=== PATIENT | male | born 2000 | race Caucasian/White ===

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

== ENCOUNTER 2021-07-10 12:52 | Emergency (ER) | payer BC, OTHER ==
[2021-07-10 13:06] VITALS: TEMP 98.2
[2021-07-10] MEDS ORDERED: SODIUM CHLORIDE 0.9% 1,000 ML IV STA (13:34)
--- NOTE | 2021-07-10 13:40 | ED ---
General Adult HPI - General Chief complaint: Recheck/Abnormal Lab/Rx Stated complaint: not feeling right, seizure tuesday Time Seen by Provider: 07/10/21 13:23 Source: patient, RN notes reviewed Mode of arrival: ambulatory Limitations: no limitations - History of Present Illness Initial comments: Patient is a pleasant 21-year-old male presenting to the emergency department not feeling well. Patient did have an episode 36 hours ago while eating dinner where he became unresponsive. This episode lasted around a minute. Patient did have some abnormal movements during this. It is questionable whether or not this may have been seizure activity. Patient was slightly confused afterwards and has been drowsy since that time. Patient was especially drowsy that night. Patient has had some light sensitivity. No significant headaches or weakness. Patient does have a history of passing out once previously however no history of seizure. - Related Data Home Medications Medication Instructions Recorded Confirmed LORazepam [Ativan] 1 mg PO TID PRN 07/10/21 07/10/21 Mirtazapine [Remeron] 30 mg PO HS 07/10/21 07/10/21 Allergies Allergy/AdvReac Type Severity Reaction Status Date / Time No Known Allergies Allergy Verified 07/10/21 13:47 Review of Systems ROS Statement: Those systems with pertinent positive or pertinent negative responses have been documented in the HPI. ROS Other: All systems not noted in ROS Statement are negative. Constitutional: Denies: fever Eyes: Denies: eye pain ENT: Denies: ear pain Respiratory: Denies: cough Cardiovascular: Denies: chest pain Endocrine: Reports: fatigue Gastrointestinal: Reports: nausea. Denies: abdominal pain, vomiting Musculoskeletal: Denies: back pain Skin: Denies: rash Neurological: Denies: weakness, confusion Past Medical History Past Medical History: Asthma History of Any Multi-Drug Resistant Organisms: None Reported Past Surgical History: No Surgical Hx Reported Past Psychological History: Anxiety, Depression Smoking Status: Current every day smoker Past Alcohol Use History: None Reported, Rare Past Drug Use History: Marijuana General Exam Limitations: no limitations General appearance: alert, in no apparent distress Head exam: Present: normocephalic Eye exam: Present: normal appearance, PERRL, EOMI. Absent: nystagmus ENT exam: Present: normal oropharynx Neck exam: Present: normal inspection Respiratory exam: Present: normal lung sounds bilaterally Cardiovascular Exam: Present: regular rate, normal rhythm GI/Abdominal exam: Present: soft. Absent: tenderness Extremities exam: Present: normal inspection Neurological exam: Present: alert, oriented X3, CN II-XII intact. Absent: motor sensory deficit Expanded Neurological exam: Present: protecting the airway Speech: Present: fluid speech Cranial nerves: EOM's Intact: Normal Sensory exam: Upper Extremity Light Touch: Normal, Lower Extremity Light Touch: Normal Motor strength exam: RUE: 5, LUE: 5, RLE: 5, LLE: 5 Eye Response: (4) open spontaneously Motor Response: (6) obeys commands Verbal Response: (5) oriented Psychiatric exam: Present: normal affect, normal mood Skin exam: Present: normal color Course Vital Signs 07/10/21 13:01 Temperature 98.2 F Pulse Rate 64 Respiratory 18 Rate Blood Pressure 135/81 O2 Sat by Pulse 98 Oximetry EKG Findings - EKG Comments: EKG Findings:: Normal sinus rhythm with her is 72. AR 200. QRS 114. QT 390. QTC 427. Normal axis. Normal QRS. No acute ST change. Medical Decision Making - Medical Decision Making Patient reevaluated and resting comfortably in bed. Patient updated on results and need for follow-up. - Lab Data Result diagrams: 07/10/21 13:52 07/10/21 13:52 Lab Results 07/10/21 07/10/21 Range/Units 13:52 13:52 WBC 6.5 (4.0-11.0) k/uL RBC 5.32 (4.30-5.90) m/uL Hgb 16.4 (13.0-17.5) gm/dL Hct 47.5 (39.0-53.0) % MCV 89.4 (80.0-100.0) fL MCH 30.9 (25.0-35.0) pg MCHC 34.5 (31.0-37.0) g/dL RDW 12.2 (11.5-15.5) % Plt Count 216 (150-450) k/uL MPV 7.6 Neutrophils % 72 % Lymphocytes % 23 % Monocytes % 4 % Eosinophils % 1 % Basophils % 0 % Neutrophils # 4.7 (1.3-7.7) k/uL Lymphocytes # 1.5 (1.0-4.8) k/uL Monocytes # 0.2 (0-1.0) k/uL Eosinophils # 0.0 (0-0.7) k/uL Basophils # 0.0 (0-0.2) k/uL Sodium 139 (137-145) mmol/L Potassium 4.1 (3.5-5.1) mmol/L Chloride 105 (98-107) mmol/L Carbon Dioxide 26 (22-30) mmol/L Anion Gap 8 mmol/L BUN 12 (9-20) mg/dL Creatinine 0.89 (0.66-1.25) mg/dL Est GFR (CKD-EPI)AfAm >90 (>60 ml/min/1.73 sqM) Est GFR (CKD-EPI)NonAf >90 (>60 ml/min/1.73 sqM) Glucose 98 (74-99) mg/dL Calcium 9.7 (8.4-10.2) mg/dL Magnesium 1.9 (1.6-2.3) mg/dL Total Bilirubin 1.3 (0.2-1.3) mg/dL AST 25 (17-59) U/L ALT 18 (4-49) U/L Alkaline Phosphatase 50 (38-126) U/L Total Protein 7.2 (6.3-8.2) g/dL Albumin 4.3 (3.5-5.0) g/dL - Radiology Data Radiology results: report reviewed (Computed tomography scan of the brain shows no acute process) Disposition Clinical Impression: Unresponsive episode Disposition: HOME SELF-CARE Condition: Stable Instructions (If sedation given, give patient instructions): New-Onset Seizure in Adults (ED), Syncope (ED) Additional Instructions: Avoid driving or other activities potential to cause harm. Please follow-up with primary care physician in the next day or 2 for recheck. Return for seizure activity, passing out, unresponsiveness, confusion or weakness, worsening or changing symptoms or other concerns. Is patient prescribed a controlled substance at d/c from ED?: No Referrals: Shayne Solorio MD [Primary Care Provider] - 1-2 days Time of Disposition: 15:05
[2021-07-10 14:27] LABS: ALT 18 U/L (4-49); AST 25 U/L (17-59); African American GFR (CKD) >90 (>60 ml/min/1.73 sqM); Albumin 4.3 g/dL (3.5-5.0); Alkaline Phosphatase 50 U/L (38-126); Anion Gap 8 mmol/L; Blood Urea Nitrogen 12 mg/dL (9-20); Calcium 9.7 mg/dL (8.4-10.2); Carbon Dioxide 26 mmol/L (22-30); Chloride 105 mmol/L (98-107); Glucose 98 mg/dL (74-99); Magnesium 1.9 mg/dL (1.6-2.3); Non-African American GFR(CKD) >90 (>60 ml/min/1.73 sqM); Potassium 4.1 mmol/L (3.5-5.1); Sodium 139 mmol/L (137-145); Total Bilirubin 1.3 mg/dL (0.2-1.3); Total Protein 7.2 g/dL (6.3-8.2)
[2021-07-10 14:38] LABS: Basophils % (A) 0 %; Eosinophils % (A) 1 %; HCT 47.5 % (39.0-53.0); HGB 16.4 gm/dL (13.0-17.5); Lymphocytes # (A) 1.5 k/uL (1.0-4.8); Lymphocytes % (A) 23 %; MCH 30.9 pg (25.0-35.0); MCHC 34.5 g/dL (31.0-37.0); MCV 89.4 fL (80.0-100.0); Mean Platelet Volume 7.6; Monocytes # (A) 0.2 k/uL (0-1.0); Monocytes % (A) 4 %; Neutrophils # (A) 4.7 k/uL (1.3-7.7); Neutrophils % (A) 72 %; Platelet Count 216 k/uL (150-450); RBC 5.32 m/uL (4.30-5.90); RDW 12.2 % (11.5-15.5); WBC 6.5 k/uL (4.0-11.0)
--- NOTE | 2021-07-10 14:50 | CT ---
EXAMINATION TYPE: CT brain wo con DATE OF EXAM: 07/10/2021 COMPARISON: None. HISTORY: Seizure 2 days ago fatigue since. CT DLP: 1192.4 mGycm. Automated Exposure Control for Dose Reduction was Utilized. TECHNIQUE: CT scan of the head is performed without contrast. FINDINGS: There is no acute intracranial hemorrhage, mass effect, or midline shift identified. The ventricles and sulci are within normal limits in size. Burks-white matter differentiation is maintain ed. The globes are intact and the visualized sinuses are clear. The calvarium is intact. IMPRESSION: Unremarkable study.
[2021-07-10 15:35] VITALS: BP 120/66; PULSE 67; RESP 16
== END 2021-07-10 15:34 | disposition home or self-care (01) ==
LOC: EC 12:52
DX: R40.4 Transient alteration of awareness (principal); J45.909 Unspecified asthma, uncomplicated; F17.200 Nicotine dependence, unspecified, uncomplicated; R40.0 Somnolence
CPT/HCPCS: 36415; 70450; 80053; 83735; 85025; 93005; 96360; 99285

== ENCOUNTER 2025-01-22 22:38 | Inpatient (IN) | payer BC, MEDICAID, OTHER ==
--- NOTE | 2025-01-22 23:11 | ED ---
General Adult HPI <RadhapenelopeSurjit - Last Filed: 01/23/25 01:57> - General Source: patient, police, RN notes reviewed, old records reviewed Mode of arrival: ambulatory Limitations: no limitations <Celso Jaramillo - Last Filed: 01/28/25 14:18> - General Chief complaint: Psychiatric Symptoms Stated complaint: Petition Time Seen by Provider: 01/22/25 22:45 - History of Present Illness Initial comments: Patient is a 25-year-old male who presents emergency department after being petitioned by police for suicidal ideations. States he has a history of depression and he has daily suicidal ideations. No recent at times. Was stating he was going to shoot himself with his gun and was found by police to have a toy water gun with him. Was brought in by police for petition. Police were contacted by patient's mother. Patient does endorse daily suicidal ideations but states he has not acted on them. States he has between medications right now for his depression. Denies any homicidal ideations, intents, plans. Denies any hallucinations. States he uses marijuana but no other drugs or alcohol. Presents for further evaluation at this time. (Celso Jaramillo) - Related Data Previous Rx's Medication Instructions Recorded Viibryd 20 mg PO HS 01/25/25 hydrOXYzine pamoate [Vistaril] 25 mg PO TID PRN 30 Days #30 cap 01/25/25 lamoTRIgine [LaMICtal] 200 mg PO HS 30 Days #60 tab 01/25/25 Allergies Allergy/AdvReac Type Severity Reaction Status Date / Time No Known Allergies Allergy Verified 01/24/25 15:58 Review of Systems ROS Other: All systems not noted in ROS Statement are negative. <Surjit Burger - Last Filed: 01/23/25 01:57> ROS Other: All systems not noted in ROS Statement are negative. <Celso Jaramillo - Last Filed: 01/28/25 14:18> ROS Statement: Those systems with pertinent positive or pertinent negative responses have been documented in the HPI. Review of Systems: CONST: Denies fever EYES: Denies blurry vision ENT: Denies nasal congestion C/V: Denies Chest pain RESP: Denies shortness of breath GI: Denies abdominal pain : Denies dysuria SKIN: Denies rash. MSK: Denies joint pain. NEURO: Denies headache (Celso Jaramillo) Past Medical History Past Medical History: Asthma Additional Past Medical History / Comment(s): [employer] History of Any Multi-Drug Resistant Organisms: None Reported Past Surgical History: No Surgical Hx Reported Past Psychological History: Anxiety, Depression Smoking Status: Current every day smoker Past Alcohol Use History: Rare Past Drug Use History: Marijuana - Past Family History Mother History Unknown: Yes <Celso Jaramillo - Last Filed: 01/28/25 14:18> General Exam Limitations: no limitations <Celso Jaramillo - Last Filed: 01/28/25 14:18> - General Exam Comments Initial Comments: General: Appears in no acute distress. HEAD: Normal with no signs of head trauma. EYES: EOMI. ENT: Hearing grossly intact. RESPIRATORY: No respiratory distress. C/V: Regular rate and rhythm. ABD: Abdomen is nondistended. EXT: No obvious deformity. SKIN: No rashes or lesions observed on exposed skin. NEURO: Alert and oriented. (Celso Jaramillo) Course Vital Signs 01/22/25 01/23/25 22:38 02:13 Temperature 98.3 F 98.5 F Pulse Rate 107 H 71 Respiratory 18 17 Rate Blood Pressure 139/94 162/83 O2 Sat by Pulse 98 99 Oximetry Medical Decision Making <Surjit Burger - Last Filed: 01/23/25 01:57> - Lab Data Result diagrams: 01/24/25 07:00 01/24/25 07:00 <Celso Jaramillo - Last Filed: 01/28/25 14:18> - Medical Decision Making I saw the patient, conducted interview and filed the clinical certification. (Surjit Burger) Was pt. sent in by a medical professional or institution (, PA, MAKING MACHINE CATCHER, urgent care, hospital, or usp...) When possible be specific @ -No Did you speak to anyone other than the patient for history (EMS, parent, family, police, friend...)? What history was obtained from this source @ -Spoke with police who provided details of the petition Did you review nursing and triage notes (agree or disagree)? Why? @ -I reviewed and agree with nursing and triage notes Were old charts reviewed (outside hosp., previous admission, EMS record, old EKG, old radiological studies, urgent care reports/EKG's, usp records)? Report findings @ -Reviewed petition completed by police. Differential Diagnosis (chest pain, altered mental status, abdominal pain women, abdominal pain men, vaginal bleeding, weakness, fever, dyspnea, syncope, headache, dizziness, GI bleed, back pain, seizure, CVA, palpatations, mental health, musculoskeletal)? @ -Differential Mental Health Depression, anxiety, bipolar, psychosis, schizophrenia, borderline personality, situational depression, adjustment disorder, behavioral disorder, brain tumor, malingering, substance abuse, encephalopathy, medication reaction, dementia, hypothyroidism, degenerative neurologic disorder, lupus.... This is not meant to be all-inclusive list EKG interpreted by me (3pts min.). @ -None done X-rays interpreted by me (1pt min.). @ -None done CT interpreted by me (1pt min.). @ -None done U/S interpreted by me (1pt. min.). @ -None done What testing was considered but not performed or refused? (CT, X-rays, U/S, labs)? Why? @ -None What meds were considered but not given or refused? Why? @ -None Did you discuss the management of the patient with other professionals (professionals i.e. , PA, MAKING MACHINE CATCHER, lab, RT, psych nurse, social scientist, television agent, teacher, foreign service officer, lead case manager)? Give summary @ -No Was smoking cessation discussed for >3mins.? @ -No Was critical care preformed (if so, how long)? @ -No Were there social determinants of health that impacted care today? How? (Homelessness, low income, unemployed, alcoholism, drug addiction, transportation, low edu. Level, literacy, decrease access to med. care, [place] [facility], rehab)? @ -No Was there de-escalation of care discussed even if they declined (Discuss DNR or withdrawal of care, Hospice)? DNR status @ -No What co-morbidities impacted this encounter? (DM, HTN, Smoking, COPD, CAD, Cancer, CVA, ARF, Chemo, Hep., AIDS, mental health diagnosis, sleep apnea, morbid obesity)? @ -None Was patient admitted / discharged? Hospital course, mention meds given and route, prescriptions, significant lab abnormalities, going to OR and other per tinent info. @ -Patient presents with depression, suicidal ideation. Was petitioned by police. Sitter ordered. Suicide precautions ordered. UDS is pending. BAT is 0. At this time, patient is medically cleared for evaluation by psychiatry. Disposition pending psychiatric evaluation. EPS notified of the consult. EPS evaluated patient and determined that he does meet inpatient criteria for psychiatric admission. Patient admitted to inpatient psychiatry. Undiagnosed new problem with uncertain prognosis? @ -No Drug Therapy requiring intensive monitoring for toxicity (Heparin, Nitro, Ins ulin, Cardizem)? @ -No Were any procedures done? @ -No Diagnosis/symptom? @ -Suicidal, depression, anxiety Acute, or Chronic, or Acute on Chronic? @ -Acute Uncomplicated (without systemic symptoms) or Complicated (systemic symptoms)? @ -Complicated Side effects of treatment? @ -None Exacerbation, Progression, or Severe Exacerbation] @ -No Poses a threat to life or bodily function? @ -Yes (Celso Jaramillo) - Lab Data Lab Results 01/22/25 01/22/25 Range/Units 23:43 23:44 Urine Opiates Screen Not Detected (NotDetected) Ur Oxycodone Screen Not Detected (NotDetected) Urine Methadone Screen Not Detected (NotDetected) Ur Barbiturates Screen Not Detected (NotDetected) U Tricyclic Antidepress Not Detected (NotDetected) Ur Phencyclidine Scrn Not Detected (NotDetected) Ur Amphetamines Screen Not Detected (NotDetected) U Methamphetamines Scrn Not Detected (NotDetected) U Benzodiazepines Scrn Not Detected (NotDetected) Urine Cocaine Screen Not Detected (NotDetected) U Marijuana (THC) Screen Detected H (NotDetected) SARS-CoV-2 (PCR) Not Detected (Not Detectd) Disposition <Surjit Burger - Last Filed: 01/23/25 01:57> <Celso Jaramillo - Last Filed: 01/28/25 14:18> Clinical Impression: Depression, Suicidal ideation, Acute anxiety Disposition: TRANSFER TO PSYCH HOSP/UNIT Condition: Stable
[2025-01-23] MEDS: lamoTRIgine 100 MG TAB PO STA (01:02)
[2025-01-23] MEDS ORDERED: LORazepam 2 MG/ML INJ IM PRN (01:16)
[2025-01-23] MEDS ORDERED: haloperidoL 5 MG TAB PO PRN (01:16)
[2025-01-23] MEDS ORDERED: MAGNESIUM HYDROXIDE 2,400 MG/30 ML CUP PO PRN (01:16)
[2025-01-23] MEDS ORDERED: HALOPERIDOL LACTATE 5 MG/ML 1 ML VIAL IM PRN (01:16)
[2025-01-23] MEDS ORDERED: LORazepam 1 MG TAB PO PRN (01:16)
[2025-01-23 02:07] LABS: Amphetamine Screen,Urine Not Detected (NotDetected); Barbiturate Screen,Urine Not Detected (NotDetected); Benzodiazepines Screen,Urine Not Detected (NotDetected); Cocaine Screen,Urine Not Detected (NotDetected); Methadone Screen, Urine Not Detected (NotDetected); Opiate Screen,Urine Not Detected (NotDetected); Oxycodone Screen, Urine Not Detected (NotDetected); Phencyclidine Screen,Urine Not Detected (NotDetected); Tricyclic Antidepressant,Urine Not Detected (NotDetected); Urn Cannabinoid Scrn Detected (NotDetected)
[2025-01-23 09:49] LABS: Appearance,Urine Clear (Clear); Bilirubin,Urine Negative (Negative); Blood,Urine Negative (Negative); Color,Urine Colorless; Glucose,Urine (UA) Negative (Negative); Ketones,Urine Negative (Negative); Leukocyte Esterase,Urine Negative (Negative); Nitrite,Urine Negative (Negative); PH, Urine 6.5 (5.0-8.0); Protein,Urine Negative (Negative); Specific Gravity,Urine 1.005 (1.001-1.035); Urobilinogen,Urine <2.0 mg/dL (<2.0)
--- NOTE | 2025-01-23 14:53 | P.HP ---
Psychiatric H&P - . H&P Date: 01/23/25 History & Physical: Allergies Allergy/AdvReac Type Severity Reaction Status Date / Time No Known Allergies Allergy Verified 01/22/25 22:42 Vital Signs Temp 97.8 F 01/23/25 10:40 Pulse 91 01/23/25 10:40 Resp 16 01/23/25 10:40 BP 115/62 01/23/25 10:40 Pulse Ox 100 01/23/25 10:40 FiO2 Intake & Output 01/22/25 01/23/25 01/23/25 18:59 06:59 18:59 Weight 107.8 kg Laboratory Last Values Urine Color Colorless 01/23/25 09:40 Urine Appearance Clear (Clear) 01/23/25 09:40 Urine pH 6.5 (5.0-8.0) 01/23/25 09:40 Ur Specific Dickens 1.005 (1.001-1.035) 01/23/25 09:40 Urine Protein Negative (Negative) 01/23/25 09:40 Urine Glucose (UA) Negative (Negative) 01/23/25 09:40 Urine Ketones Negative (Negative) 01/23/25 09:40 Urine Blood Negative (Negative) 01/23/25 09:40 Urine Nitrite Negative (Negative) 01/23/25 09:40 Urine Bilirubin Negative (Negative) 01/23/25 09:40 Urine Urobilinogen <2.0 mg/dL (<2.0) 01/23/25 09:40 Ur Leukocyte Esterase Negative (Negative) 01/23/25 09:40 Urine Opiates Screen Not Detected (NotDetected) 01/22/25 23:44 Ur Oxycodone Screen Not Detected (NotDetected) 01/22/25 23:44 Urine Methadone Screen Not Detected (NotDetected) 01/22/25 23:44 Ur Barbiturates Screen Not Detected (NotDetected) 01/22/25 23:44 U Tricyclic Antidepress Not Detected (NotDetected) 01/22/25 23:44 Ur Phencyclidine Scrn Not Detected (NotDetected) 01/22/25 23:44 Ur Amphetamines Screen Not Detected (NotDetected) 01/22/25 23:44 U Methamphetamines Scrn Not Detected (NotDetected) 01/22/25 23:44 U Benzodiazepines Scrn Not Detected (NotDetected) 01/22/25 23:44 Urine Cocaine Screen Not Detected (NotDetected) 01/22/25 23:44 U Marijuana (THC) Screen Detected (NotDetected) H 01/22/25 23:44 SARS-CoV-2 (PCR) Not Detected (Not Detectd) 01/22/25 23:43 01/23/25 14:43 IDENTIFYING DATA: Patient is a 25-year-old male, homeless but living with brother, on SSD CHIEF COMPLAINT: Suicidal ideations HPI: Patient presented to the hospital with SI. Per EPS, "Pt [facility] brought [facility] on a petition. Petition states "officers were dispatched to [address] [facility] due to Willi calling mobile crisis saying he was going to get a gun from a safe and use it on himself. Stopped vehicle for a welfare check, Willi advised he was not suicidal, but when I asked about a toy gun he told me "I wish you would have just shot me because of it. He also advised his medication has changed." Pt was resting on stretcher, agreeable to speak with engineering writer and allowed pt mother and step-father to stay in the room during assessment. Pt has struggled with depression and mental health since age 9. Pt states "i actively seek help. I try to open up to people. I would like things to change. I always feel like this, no matter what medication I am. I think about suicide everyday, I just want a friend. I'm trying- I go to my apmnts, I take my medicine and nothing ever changes". Pt states he recent was started on geodon but stopped taking it a few days ago. Pt was tearful, then loud and animated during assessment. Pt reports anxiety "05/31", depression "05/31". Pt has a history of multiple suicide attempts via OD, jumping in a fire, pt reports last overdose on meds 2020. Pt denies HI,AVH and free of delusional thought processes. Pt recently had a birthday, his friend the day after and he is currently living in the basement of that friend's gf house along with the gf small child. Pt also found out his great uncle he was living with had a hidden camera in the bathroom and is a "pedophile". Pt was also close with his gma but she is still allowing the uncle to be around the family and in her house. When asked about a support system, pt replied "F*ck No". Pt denies access to guns or weapons. Pt repeatedly states being admitted to the hospital will not do anything for him. Pt states after 3 months of waiting he is going to be starting the DBT program through [facility] next tuesday. Pt mother talked with engineering writer privately stating she has never seen the pt act like this, states he had put a rope around his neck a few days ago and had called her tn stating he was going to kill himself. Pt mother called mobile crisis who called the police." Patient seen and evaluated on the unit and was agreeable with speaking to engineering writer in office. He is very dramatic during the interview, exhibiting mood lability. He states ever since the age of 9, he has been suffering from mood symptoms with chronic suicidal ideations. He is adamant that he does not have any plan or intent to kill himself, stating he wants to live but does see this admit being a setback. He states on the day of admission he finally opened up to his mom and told her how he has been feeling. He states mom herself contacted the crisis line who ultimately got him here in the hospital. He states ongoing stressors include him being homeless and him last month finding out that his uncle was a pedophile. He states prior to living with his little brother him and his brother have moved in with their uncle where he found cameras hidden throughout the house. He has filed a police report however states no one has contacted him in the past 3 weeks for this. Patient did admit that on his birthday he had plans on hanging himself however he ended up drinking heavily and did not act on these thoughts. He reports appetite changes, low energy, anhedonia, low mood with chronic suicidal ideations. He reports anxiety that appears generalized in nature in addition to feeling on edge and racing thoughts. Patient denies any homicidal ideations intent or plan. At this time patient denies any auditory or visual hallucinations. Patient denies any flight of ideas racing thoughts and increased in goal directed behavior. Patient admits to using cannabis daily. PAST PSYCHIATRIC HISTORY: Patient has a history of BPD, MDD, JOSÉ MIGUEL. Patient reports being on lamotrigine 100 mg at bedtime, Viibryd 10 mg daily, recently started on Vraylar however has not picked this prescription up. He has tried several psychotropic meds in the past including Wellbutrin, Remeron, Prozac, Lexapro, Geodon, Caplyta and he reports adverse effects to several of them including "almost dying" after starting Prozac. Patient denies any previous psychiatric hospitalizations. Patient recently saw Cesia Chamberlain [employer] for intake at [facility] and he also sees a therapist there, starting DBT soon. Patient reports several suicide attempts however only 2 required inpatient treatment, most recent being in 2020. PMH: as per ER note ALLERGIES: as per EMR SUBSTANCE USE HISTORY: Patient states he uses a 1000 mg vape cart in 2 days FAMILY PSYCHIATRIC/SUBSTANCE USE HISTORY: Patient states his mom has BPD and that his brother has MDD. SOCIAL HISTORY: Patient is single and has no children. He is on SSD, completed high school. He is homeless however has been staying with his little brother recently MENTAL STATUS EXAM: General Appearance: Patient appears to be stated age is alert, directable, and attempts to cooperate. Patient appears to have fair hygiene and grooming. He is tall Behavior: Patient is seated without any agitated behavior. Speech: Patient's speech is fluent and nonpressured. Mood/Affect: Patient reports their mood is depressed, affect is congruent and labile Suicidality/Homicidality: Patient denies having any homicidal ideation intent or plan. Patient reports suicidal ideations, no plan or intent and chronic in nature Perceptions: Patient denies any visual hallucinations and denies any auditory hallucinations Though content/process: There is no evidence of any delusional thought content and thought process is linear and goal-directed. Memory and concentration: AOX3, grossly intact for the purposes of this session. Can spell "WORLD" backwards Judgment and insight: Poor STRENGTHS/WEAKNESSES: strength is that patient is resilient. Weakness is that patient has poor judgment and is impulsive INTELLECT: Average IMPRESSIONS: Major depressive disorder, recurrent, moderate Generalized anxiety disorder Borderline personality disorder Cannabis use disorder, severe PLAN: -Patient is admitted under voluntary status to [facility] for stabilization of psychiatric symptoms and safety. Patient has signed adult voluntary form and and is placed in patient's chart. -Medications : Increase Lamictal to 150 mg at bedtime for mood stabilization, continue Viibryd 10 mg daily for depression (discussed with patient regarding having someone bring in the medication), patient to also start Vraylar upon discharge as he has not picked this up from the pharmacy - Klonopin and Haldol PRN for agitation/aggression -Patient was counselled on substance abuse and desired to cut back on use -Patient was informed of the risks, benefits and side effects of the medication and patient verbally consented to taking the medications. Patient signed med consent form and was placed in chart. Patient offered and declined patient education sheet for psychotropic medications. -Internal Medicine consult to perform medical evaluation and physical. -NRT -not needed as patient does not smoke -SW on board for discharge planning. Encourage patient to participate in groups to work on coping skills. Anticipate discharge in ~2-3 days, home with brother
[2025-01-23] MEDS: lamoTRIgine 100 MG TAB PO SCH (21:02)
[2025-01-23] MEDS: clonazePAM 0.5 MG TAB PO PRN (22:36)
[2025-01-24 07:33] LABS: Basophils # (A) 0.05 10*3/uL (0.00-0.10); Basophils % (A) 0.8 %; Eosinophils # (A) 0.04 10*3/uL (0.04-0.35); Eosinophils % (A) 0.6 %; HCT 53.3 % (39.6-50.0); HGB 18.9 g/dL (13.0-17.0); Lymphocytes # (A) 1.79 10*3/uL (0.90-5.00); Lymphocytes % (A) 28.5 %; MCHC 35.5 g/dL (32.0-37.0); MCV 87.5 fL (80.0-97.0); Mean Platelet Volume 9.7 fL (9.5-12.2); Monocytes % (A) 9.5 %; Neutrophils # (A) 3.79 10*3/uL (1.80-7.70); Neutrophils % (A) 60.3 %; Platelet Count 240 10*3/uL (140-440); RBC 6.09 10*6/uL (4.40-5.60); RDW 12.3 % (11.5-14.5); WBC 6.29 10*3/uL (4.50-10.00)
[2025-01-24 07:56] LABS: ALT 31 U/L (4-49); AST 31 U/L (17-59); African American GFR (CKD) >90 (>60 ml/min/1.73 sqM); Albumin 4.9 g/dL (3.5-5.0); Alkaline Phosphatase 43 U/L (38-126); Anion Gap 13 mmol/L; Blood Urea Nitrogen 13 mg/dL (9-20); Calcium 10.5 mg/dL (8.4-10.2); Carbon Dioxide 27 mmol/L (22-30); Chloride 99 mmol/L (98-107); Glucose 83 mg/dL (74-99); Non-African American GFR(CKD) >90 (>60 ml/min/1.73 sqM); Potassium 4.2 mmol/L (3.5-5.1); Sodium 139 mmol/L (137-145); Total Protein 7.7 g/dL (6.3-8.2)
[2025-01-24] MEDS: IBUPROFEN 600 MG TAB PO PRN (09:38)
--- NOTE | 2025-01-24 13:09 | P.PN ---
Progress Note - Text Progress Note Date: 01/24/25 Interval History: Patient was seen wandering the hallways and was directable and agreeable to antonino choi with poem writer in the office. Patient admits to feeling unwell this morning due to him not receiving his antidepressant last night. He states feeling better however continues to have crying spells. He does not feel as though this environment is therapeutic for him, goal oriented with starting DBT next Tuesday. He is able to realize some benefit with being here however he feels betrayed by his mother contacted the crisis line to get him help as he has felt this way for over 15 years now. He has tried several psychotropic medications however none has been effective. Discussed with patient the most effective treatment for borderline personality disorder is DBT however he was still agreeable with titrating his Lamictal today. He does report suicidal ideations, lessening in intensity and chronic. At this time patient denies any homicidal ideations, intent or plan. Patient denies any auditory, visual hallucinations and denies any paranoia or delusions. Patient denies any side effects from the medications and has been compliant with meds. Mental Status Exam: General Appearance: Patient appears to be stated age is alert, directable, and cooperative. Behavior: Patient is calmly seated without any agitated behavior. He is intermittently tearful Speech: Patient's speech is fluent and nonpressured. Mood/Affect: Mood is improving mildly, affect is congruent and labile. Suicidality/Homicidality: Patient denies having any homicidal ideation intent or plan. Patient reports suicidal ideations, lessening in intensity, chronic Perceptions: Patient denies any visual hallucinations and denies any auditory hallucinations Though content/process: There is no evidence of any delusional thought content and thought process is linear and goal-directed. Memory and concentration: AOX3, grossly intact for the purposes of this session Judgment and insight: Improving mildly Assessment Major depressive disorder, recurrent, moderate Generalized anxiety disorder Borderline personality disorder Cannabis use disorder, severe Plan: -Patient continues to meet criteria for inpatient psychiatric admission for symptom stabilization and safety. Patient has signed adult voluntary form and medication consent and was placed in patient's chart. -Medications: Increase Lamictal to 200 mg at bedtime for mood stabilization, resume Viibryd 20 mg at bedtime for depression, patient to start Vraylar upon discharge however he has not picked up the prescription from pharmacy -When necessary Klonopin and Haldol for agitation/aggression. -Labs: TSH/A1c WNL -SW on board for discharge planning. Encouraged the patient to participate in milieu. Anticipate discharge home with brother tomorrow
--- NOTE | 2025-01-24 20:49 | P.HPIM ---
History of Present Illness H&P Date: 01/24/25 Chief Complaint: depression 25-year-old male patient with a past medical history of borderline personality disorder who was admitted in the psych unit for management of depression and suicidal ideation PMH: Anxiety, Depression SUBSTANCE USE HISTORY: Patient states he uses a 1000 mg vape cart in 2 days, daily marijuana use FAMILY PSYCHIATRIC/SUBSTANCE USE HISTORY: Patient states his mom has BPD and that his brother has MDD. SOCIAL HISTORY: Patient is single and has no children. He is on SSD, completed high school. He is homeless however has been staying with his little brother recently Review of system : Negative except what mentioned in HPI Physical exam : General: nontoxic, no distress, appears at stated age Derm: warm, dry, intact Head: atraumatic, normocephalic, symmetric Eyes: EOMI, anicteric sclera Mouth: no lip lesion, mucus membranes moist Cardiovascular: S1 S2 reg, no murmur, rubs, or gallops Lungs: CTA bilateral, no rales, no accessory muscle use Abdominal: soft, non-tender to palpataion, no appreciable organomegaly Extremities: no gross muscle atrophy, no edema, no contractures Neuro: Alert, Oriented, CNII-XII grossly intact, gait normal Psych: well appearing, appropriate affect II: Pupils equal and reactive, no RAPD, normal visual field and fundus III, IV, : EOM intact, no gaze preference or deviation V: normal VII: no facial asymmetry VIII: normal hearing to speech Assessment and plan : - Major depression disorder with suicidal ideation/anxiety : Managed by psych unit CODE STATUS is full code Time spent : 35 min Past Medical History Past Medical History: Asthma Additional Past Medical History / Comment(s): BPD History of Any Multi-Drug Resistant Organisms: None Reported Past Surgical History: No Surgical Hx Reported Smoking Status: Former smoker - Past Family History Mother History Unknown: Yes Medications and Allergies Home Medications Medication Instructions Recorded Confirmed Type ALPRAZolam [Xanax] 0.25 mg PO TID PRN 01/24/25 01/24/25 History Albuterol Inhaler [Ventolin Hfa 2 puff INHALATION RT-Q6H PRN 01/24/25 01/24/25 History Inhaler] Folic Acid 2 mg PO DAILY 01/24/25 01/24/25 History Vilazodone HCl 20 mg PO DAILY 01/24/25 01/24/25 History Ziprasidone [Geodon] 20 mg PO BID 01/24/25 01/24/25 History lamoTRIgine 100 mg PO DAILY 01/24/25 01/24/25 History Allergies Allergy/AdvReac Type Severity Reaction Status Date / Time No Known Allergies Allergy Verified 01/24/25 15:58 Physical Exam Vitals: Vital Signs Temp Pulse Resp BP Pulse Ox 01/24/25 09:00 98.4 F 136 H 18 155/77 99 01/23/25 22:18 98.3 F 107 H 18 140/93 99 Results CBC & Chem 7: 01/24/25 07:00 01/24/25 07:00 Labs: Abnormal Lab Results - Last 24 Hours (Table) 01/24/25 01/24/25 Range/Units 07:00 07:00 RBC 6.09 H (4.40-5.60) 10*6/uL Hgb 18.9 H (13.0-17.0) g/dL Hct 53.3 H (39.6-50.0) % Calcium 10.5 H (8.4-10.2) mg/dL Total Bilirubin 2.0 H (0.2-1.3) mg/dL Thrombosis Risk Factor Assmnt - Choose All That Apply Any of the Below Risk Factors Present?: Yes Each Factor Represents 1 point: Obesity (BMI >25) Other Risk Factors: No Other congenital or acquired thrombophilia - If yes, enter type in comment: No Thrombosis Risk Factor Assessment Total Risk Factor Score: 1 Thrombosis Risk Factor Assessment Level: Low Risk
[2025-01-24] MEDS: VIIBRYD 20 MG PO SCH (20:50)
[2025-01-24] MEDS: ACETAMINOPHEN TAB 325 MG TAB PO PRN (20:52)
[2025-01-24] MEDS: lamoTRIgine 100 MG TAB PO SCH (21:21)
[2025-01-24] MEDS: BENZOCAINE/MENTHOL LOZENG 1 EACH LOZENGE MUCOUS MEM PRN (23:15)
[2025-01-25] MEDS ORDERED: LOPERAMIDE 2 MG CAP PO PRN (05:33)
[2025-01-25] MEDS: MAG HYDROX/AL HYDROX/SIMETH 355 ML BOTTLE PO PRN (09:16)
[2025-01-25 11:25] VITALS: BP 113/80; PULSE 110; RESP 18; TEMP 97.8
--- NOTE | 2025-01-25 13:16 | P.DS ---
Providers Date of admission: 01/23/25 01:12 Expected date of discharge: 01/25/25 Attending physician: Adrianna Sullivan MD Consults: 01/23/25 01:16 Consult Physician Routine Consulting Provider: Andrey Garcia Consult Reason/Comments: h & p Do you want consulting provider notified?: Already Contacted Primary care physician: Gloria Iqbal MD - Discharge Diagnosis(es) (1) Major depressive disorder, recurrent, moderate Current Visit: Yes Status: Acute Priority: High (2) Generalized anxiety disorder Current Visit: Yes Status: Acute Priority: Medium (3) Borderline personality disorder Current Visit: Yes Status: Chronic Priority: High (4) Cannabis use disorder Current Visit: Yes Status: Acute Priority: Low Hospital Course: Admission HPI: Admission note was completed by typewriter assembler "Patient presented to the hospital with SI. Per EPS, "Pt was brought in by [facility] on a petition. Petition states "officers were dispatched to [address] [place] [address] due to Willi calling mobile crisis saying he was going to get a gun from a safe and use it on himself. Stopped vehicle for a welfare check, Willi advised he was not suicidal, but when I asked about a toy gun he told me "I wish you would have just shot me because of it. He also advised his medication has changed." Pt was resting on stretcher, agreeable to speak with typewriter assembler and allowed pt mother and step-father to stay in the room during assessment. Pt has struggled with depression and mental health since age 9. Pt states "i actively seek help. I try to open up to people. I would like things to change. I always feel like this, no matter what medication I am. I think about suicide everyday, I just want a friend. I'm trying- I go to my apmnts, I take my medicine and nothing ever changes". Pt states he recent was started on geodon but stopped taking it a few days ago. Pt was tearful, then loud and animated during assessment. Pt reports anxiety "05/31", depression "05/31". Pt has a history of multiple suicide attempts via OD, jumping in a f kerry, pt reports last overdose on meds 2020. Pt denies HI,AVH and free of delusional thought processes. Pt recently had a birthday, his friend the day after and he is currently living in the basement of that friend's gf house along with the gf small child. Pt also found out his great uncle he was living with had a hidden camera in the bathroom and is a "pedophile". Pt was also close with his gma but she is still allowing the uncle to be around the family and in her house. When asked about a support system, pt replied "F*ck No". Pt denies access to guns or weapons. Pt repeatedly states being admitted to the hospital will not do anything for him. Pt states after 3 months of waiting he is going to be starting the DBT program through [facility] next tuesday. Pt mother talked with typewriter assembler privately stating she has never seen the pt act like this, states he had put a rope around his neck a few days ago and had called her tn stating he was going to kill himself. Pt mother called mobile crisis who called the police." Patient seen and evaluated on the unit and was agreeable with speaking to typewriter assembler in office. He is very dramatic during the interview, exhibiting mood lability. He states ever since the age of 9, he has been suffering from mood symptoms with chronic suicidal ideations. He is adamant that he does not have any plan or intent to kill himself, stating he wants to live but does see this admit being a setback. He states on the day of admission he finally opened up to his mom and told her how he has been feeling. He states mom herself contacted the crisis line who ultimately got him here in the hospital. He states ongoing stressors include him being homeless and him last month finding out that his uncle was a pedophile. He states prior to living with his little brother him and his brother have moved in with their uncle where he found cameras hidden throughout the house. He has filed a police report however states no one has contacted him in the past 3 weeks for this. Patient did admit that on his birthday he had plans on hanging himself however he ended up drinking heavily and did not act on these thoughts. He reports appetite changes, low energy, anhedonia, low mood with chronic suicidal ideations. He reports anxiety that appears generalized in nature in addition to feeling on edge and racing thoughts. Patient denies any homicidal ideations intent or plan. At this time patient denies any auditory or visual hallucinations. Patient denies any flight of ideas racing thoughts and increased in goal directed behavior. Patient admits to using cannabis daily." Hospital course: Upon admission to the unit patient was directable and agreeable to commence treatment and signed adult voluntary form.. Patient got along well with other patients on the unit and followed unit protocol. Patient was compliant with the medications and denied any side effects throughout hospital course. Patient was continued on Viibryd 20 mg at bedtime for depression, Lamictal increased to 200 mg at bedtime for mood stabilization, patient also to start Vraylar upon discharge as this medication is not on formulary at the hospital and he did not brass pickler the prescription prior to admission. Patient spoke of his stressors and engaged in therapy both group and individual. Patient was also seen by medical team for history and physical exam. Throughout the course of the hospitalization patient gradually improved with regards to mood, anxiety, sleep and returned back to their baseline level of functioning. On the day of discharge patient denied any homicidal ideations intent or plan denied any auditory or visual hallucinations. Patient did report chronic, stable suicidal ideations however did admit that they are less intense than previous encounter. The patient denied any access to guns or weapons. Patient denied any paranoia and did not endorse any delusions. Patient does not have a significant history of substance abuse and was counseled on abstaining from all substances including alcohol and marijuana. Patient was also counseled on the medications and need for regular compliance and was encouraged to follow-up with their outpatient appointment for mental health and also for primary care. Prior to discharge a family meeting will be arranged by child protective services social worker to answer any questions and ensure safety upon discharge including making sure that guns/weapons are either removed from the home or locked away. Patient to be discharged home with brother and will follow-up with [facility] with [facility] Mental status exam: General Appearance: Patient appears to be stated age is alert, pleasant, and cooperative. Patient is in no acute distress and has improved hygiene and grooming Behavior: Patient is calmly seated without any agitated behavior. Speech: Patient's speech is fluent and nonpressured. Mood/Affect: Patient reports their mood is "better", affect is congruent and euthymic. Suicidality/Homicidality: Patient denies having any homicidal ideation intent or plan. He does report chronic suicidal ideations, no plan or intent and less in intensity Perceptions: Patient denies any auditory or visual hallucinations. Though content/process: There is no evidence of any delusional thought content and thought process is linear and goal-directed. Memory and concentration: AOX3, grossly intact for the purposes of this session. Can spell "WORLD" backwards correctly. Judgment and insight: Chronically poor, however has improved with guarded prognosis Impression: Major depressive disorder, recurrent, moderate Generalized anxiety disorder Borderline personality disorder Cannabis use disorder, severe Plan: -Continue with discharge today as patient has improved and stabilized psychiatrically and is not currently an imminent threat to themself and/or others. Patient will remain at chronically elevated risk for harm to self and/or others due to their impulsivity and substance abuse. -Continue medications: Lamictal 200 mg at bedtime, Viibryd 20 mg at bedtime, Vraylar -Patient was counseled on the need for medication compliance and appropriate follow-up at mental health and also primary care for medical issues. Patient verbalized understanding and agreed. -Social work to help coordinate patients discharge today. also to ensure safe home environment that guns/weapons are either removed from the home or locked away. Social work also to arrange for patients follow up appointments with [facility] for psychiatric care along with follow up with primary care provider. -Patient counseled on abstaining from recreational drugs and marijuana and alcohol. Was informed/educated on the adverse effects on their physical and mental health. Patient verbally agreed and understood. -Patient was instructed to return to the hospital or seek immediate medical care if their psychiatric or medical symptoms do worsen or reoccur. Abnormal Labs 01/22/25 01/24/25 01/24/25 23:44 07:00 07:00 RBC 6.09 H Hgb 18.9 H Hct 53.3 H Calcium 10.5 H Total Bilirubin 2.0 H U Marijuana (THC) Screen Detected H Allergies Allergy/AdvReac Type Severity Reaction Status Date / Time No Known Allergies Allergy Verified 01/24/25 15:58 Vital Signs Temp 97.8 F 01/25/25 11:23 Pulse 110 H 01/25/25 11:23 Resp 18 01/25/25 11:23 BP 113/80 01/25/25 11:23 Pulse Ox 98 01/25/25 11:23 FiO2 Patient Condition at Discharge: Stable Plan - Discharge Summary Discharge Rx Participant: No New Discharge Prescriptions: New lamoTRIgine [LaMICtal] 200 mg PO HS 30 Days #60 tab Viibryd 20 mg PO HS hydrOXYzine pamoate [Vistaril] 25 mg PO TID PRN 30 Days #30 cap PRN Reason: Anxiety Continue Vilazodone HCl 20 mg PO DAILY Discontinued Ziprasidone [Geodon] 20 mg PO BID Folic Acid 2 mg PO DAILY lamoTRIgine 100 mg PO DAILY ALPRAZolam [Xanax] 0.25 mg PO TID PRN PRN Reason: Anxiety Albuterol Inhaler [Ventolin Hfa Inhaler] 2 puff INHALATION RT-Q6H PRN PRN Reason: Shortness Of Breath Discharge Medication List Vilazodone HCl 20 mg PO DAILY 01/24/25 [History] Viibryd 20 mg PO HS 01/25/25 [Rx] hydrOXYzine pamoate [Vistaril] 25 mg PO TID PRN 30 Days #30 cap 01/25/25 [Rx] lamoTRIgine [LaMICtal] 200 mg PO HS 30 Days #60 tab 01/25/25 [Rx] Follow up Appointment(s)/Referral(s): [facility] [place] [Outside] - 01/31/25 11:00 am (01/31/2025 11:00AM - 12:00PM BASHIR PAUL 02/01/2025 11:00AM - 12:00PM JONNY J. IRAIDA 02/06/2025 11:30AM - 12:30PM YUDI TORRES ) Gloria Iqbal MD [Primary Care Provider] - 1-2 days Activity/Diet/Wound Care/Special Instructions: Avoid the use of street drugs and alcohol. Take all medications as prescribed. When you are in need of refills on your medications, please contact your medical provider and/or outpatient psychiatrist/provider to have this done. Please go to your scheduled outpatient appointment for aftercare treatment. If symptoms return or become worse, call the crisis line at and/or go to the nearest emergency room for evaluation. National Suicide Hotline [address] [facility] confidentiality statement: "The information contained in this communication, including attachments, is confidential, may be privileged, and is intended only for the use of the named recipient(s). Unauthorized use, disclosure, forwarding or copying is strictly prohibited and may be unlawful. If you have received this communication in error, please notify me IMMEDIATELY at the phone number or pager listed above. Discharge Disposition: HOME SELF-CARE
== END 2025-01-25 13:59 | disposition home or self-care (01) | DRG 885 ==
LOC: EC 22:38 → 3MHU 01-23 01:12
PROVIDERS: ADMIT Psychiatry & Neurology Psychiatry; ATTEND Psychiatry & Neurology Psychiatry
DX: F33.1 Major depressive disorder, recurrent, moderate (principal); Z59.01 Sheltered homelessness; R45.851 Suicidal ideations; F12.20 Cannabis dependence, uncomplicated; J45.909 Unspecified asthma, uncomplicated; F60.3 Borderline personality disorder; F41.1 Generalized anxiety disorder; F17.200 Nicotine dependence, unspecified, uncomplicated; Z79.899 Other long term (current) drug therapy; Z91.51 Personal history of suicidal behavior; Z11.52 Encounter for screening for COVID-19; Z28.310 Unvaccinated for COVID-19; Z28.21 Immunization not carried out because of patient refusal
CPT/HCPCS: 80053; 80306; 81003; 82075; 83036; 84443; 85025; 87635; 99285